=== PATIENT | male | born 1990 | race Hispanic/Latino ===

== ENCOUNTER 2017-06-21 20:15 | Emergency (ER) | payer BC ==
[~2017-06-21] VITALS: Ht 177.8 cm; Wt 107.0 kg
[2017-06-21] MEDS ORDERED: IBUPROFEN 600 MG TAB PO STA (20:59)
[2017-06-21] MEDS ORDERED: TETANUS/DIPHTHERIA TOX ADULT 0.5 ML SYR IM ONE (21:00)
[2017-06-21 21:30] VITALS: BP 136/86
== END 2017-06-21 21:05 | disposition home or self-care (01) ==
LOC: FSED 20:15
DX: S61.451A Open bite of right hand, initial encounter (principal); S71.151A Open bite, right thigh, initial encounter; W54.0XXA Bitten by dog, initial encounter; Y92.008 Other place in unspecified non-institutional (private) residence as the place of occurrence of the external cause
CPT/HCPCS: 90714; 99283

== ENCOUNTER 2017-11-18 11:02 | Emergency (ER) | payer BC, OTHER ==
[~2017-11-18] VITALS: Ht 177.8 cm; Wt 107.0 kg
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
== END 2017-11-18 12:01 | disposition home or self-care (01) ==
LOC: FSED 11:02
DX: S61.214A Laceration without foreign body of right ring finger without damage to nail, initial encounter (principal); S61.216A Laceration without foreign body of right little finger without damage to nail, initial encounter; W20.8XXA Other cause of strike by thrown, projected or falling object, initial encounter; Y99.0 Civilian activity done for income or pay
CPT/HCPCS: 99284

== ENCOUNTER 2023-12-31 12:09 | Emergency (ER) | payer OTHER ==
[~2023-12-31] VITALS: Ht 177.8 cm; Wt 119.3 kg
[2023-12-31 13:20] VITALS: PULSE 71; RESP 18; TEMP 98.8; O2SAT 100
[2023-12-31] MEDS ORDERED: IBUPROFEN200 MG PO (13:45)
[2023-12-31] MEDS ORDERED: ULTRAM 50MG50 MG PO (13:45)
[2023-12-31] MEDS: ONDANSETRON HCL 4 MG ORAL DISINTEGRATING TAB PO ONE (14:27)
[2023-12-31] MEDS: IBUPROFEN 600 MG TAB PO ONE (14:28)
[2023-12-31] MEDS: TRAMADOL HCL 50 MG TAB PO ONE (14:28)
== END 2023-12-31 14:40 | disposition home or self-care (01) ==
LOC: FSED 12:16
DX: S93.491A Sprain of other ligament of right ankle, initial encounter (principal); X58.XXXA Exposure to other specified factors, initial encounter; Y92.89 Other specified places as the place of occurrence of the external cause
CPT/HCPCS: 73610; 99283; Q0162